=== PATIENT | male | born 1990 | race African-American/Black ===

== ENCOUNTER 2020-05-04 13:50 | Observation (INO) ==
[2020-05-04] MEDS ORDERED: SODIUM CHLORIDE 0.9% 1,000 ML IV STA (14:23)
[2020-05-04] MEDS ORDERED: METOCLOPRAMIDE 10 MG/2 ML VIAL IV STA (14:23)
[2020-05-04] MEDS ORDERED: ONDANSETRON 4 MG/2 ML VIAL IV STA (14:23)
[2020-05-04] MEDS ORDERED: PANTOPRAZOLE 40 MG VIAL IV STA (14:23)
[2020-05-04 14:34] LABS: Basophils % 0.2 % (0.0-0.8); Hematocrit 47.1 VOL% (42.0-52.0); Hemoglobin 16.2 GM/DL (14.0-18.0); Immature Granulocytes % 0.4 %; Immature Granulocytes Absolute 0.05 #; Lymphocytes # 1.1 10*3/uL (1.4-4.0); Lymphocytes % 9.4 % (21.2-54.2); Mean Corpuscular HGB Conc 34.4 GM/DL (32-36); Mean Platelet Volume 11.3 FL (9.6-12.0); Monocytes % 8.2 % (1.7-12.7); Neutrophils % 81.8 % (38.7-73.9); Platelet Count 180 T/CUMM (130-400); Red Blood Count 5.61 MC/CUMM (3.8-5.5); Red Cell Distribution Width 12.3 % (9.3-17.3)
[2020-05-04 14:40] LABS: Bilirubin,Urine Negative (Negative); Blood, Urine Negative (Negative); Glucose,Urine (UA) Negative (Negative); Ketones,Urine 5 mg/dL (Negative); Mucus,Urine Moderate /LPF (Occasional); Nitrite,Urine Negative (Negative); Protein,Urine 30 MG/DL; Squamous Epithelial Cell,Urine Occasional /HPF (0-10); Urine Appearance CLEAR (Clear); Urine Color Yellow (Yellow); Urine Specific Gravity 1.029 (1.001-1.035)
[2020-05-04 14:54] LABS: Albumin 4.2 G/DL (3.4-5.0); Bilirubin,Total 1.8 MG/DL (0.2-1.0); Calcium 9.5 MG/DL (8.5-10.1); Osmolality,Calculated 269.1 MOS/KG (273-304); Total Protein 8.8 G/DL (6.4-8.3)
[2020-05-04] MEDS ORDERED: PIPERACILLIN/TAZOBACTAM 3,375 MG in SODIUM CHLORIDE 0.9% 100 ML IV STA (15:03)
[2020-05-04] MEDS ORDERED: ALBUTEROL/IPRATROPIUM 3 ML NEB RESP TX PRN (15:38)
[2020-05-04] MEDS ORDERED: KETOROLAC 15 MG/1 ML VIAL IV PRN (15:38)
[2020-05-04] MEDS ORDERED: ONDANSETRON 4 MG/2 ML VIAL IV PRN (15:38)
[2020-05-04] MEDS: LACTATED RINGERS 1,000 ML IV SCH (17:12)
[2020-05-05] MEDS: PIPERACILLIN/TAZOBACTAM 3,375 MG in SODIUM CHLORIDE 0.9% 100 ML IV SCH ×3 (01:34→16:50)
[2020-05-05] MEDS: LACTATED RINGERS 1,000 ML IV SCH ×3 (01:34→16:50)
[2020-05-05 05:44] LABS: Basophils % 0.2 % (0.0-0.8); Eosinophils # 0.1 10*3/uL (0.0-0.87); Eosinophils % 0.5 % (0.00-10.9); Hematocrit 42.9 VOL% (42.0-52.0); Hemoglobin 14.8 GM/DL (14.0-18.0); Immature Granulocytes % 1.1 %; Immature Granulocytes Absolute 0.11 #; Lymphocytes # 1.6 10*3/uL (1.4-4.0); Lymphocytes % 16.1 % (21.2-54.2); Mean Corpuscular HGB Conc 34.5 GM/DL (32-36); Mean Corpuscular Volume 84.1 FL (87-102); Monocytes % 8.9 % (1.7-12.7); Neutrophils % 73.2 % (38.7-73.9); Platelet Count 156 T/CUMM (130-400); Red Cell Distribution Width 12.2 % (9.3-17.3); White Blood Count 9.7 T/CUMM (4-12)
[2020-05-05 06:26] LABS: Albumin 3.2 G/DL (3.4-5.0); Bilirubin,Total 3.3 MG/DL (0.2-1.0); Calcium 8.9 MG/DL (8.5-10.1); Osmolality,Calculated 272.7 MOS/KG (273-304); Total Protein 7.2 G/DL (6.4-8.3)
[2020-05-05] MEDS ORDERED: LIDOCAINE 1%/EPI INJ 20 ML VIAL ONE (07:28)
[2020-05-05] MEDS ORDERED: BUPIVACAINE MPF 0.25% 30 ML VIAL ONE (07:28)
[2020-05-05] MEDS ORDERED: MIDAZOLAM 2 MG/2 ML VIAL ONE (07:36)
[2020-05-05] MEDS ORDERED: fentaNYL 100 MCG/2 ML VIAL ONE ×2 (07:36→08:13)
[2020-05-05] MEDS ORDERED: propofoL 200 MG/20 ML VIAL IV ONE (08:25)
[2020-05-05] MEDS ORDERED: ONDANSETRON 4 MG/2 ML VIAL ONE (08:25)
[2020-05-05] MEDS ORDERED: DEXAMETHASONE 4 MG/1 ML VIAL ONE (08:25)
[2020-05-05] MEDS ORDERED: SUCCINYLCHOLINE 200 MG/10 ML VIAL ONE (08:25)
[2020-05-05] MEDS ORDERED: ROCURONIUM 50 MG/5 ML VIAL IV ONE (08:25)
[2020-05-05] MEDS ORDERED: SUGAMMADEX 200 MG/2 ML VIAL IV ONE (08:26)
[2020-05-05] MEDS ORDERED: TISSUE ADHESIVE 1 EACH APPLICATOR TOP ONE (08:28)
[2020-05-05] MEDS ORDERED: MEPERIDINE 25 MG/1 ML VIAL IV PRN (08:55)
[2020-05-05] MEDS ORDERED: diphenhydrAMINE 50 MG/1 ML VIAL IV PRN (08:55)
[2020-05-05] MEDS ORDERED: PROMETHAZINE INJ 25 MG in SODIUM CHLORIDE 0.9% 50 ML IV PRN (08:55)
[2020-05-05] MEDS ORDERED: ONDANSETRON 4 MG/2 ML VIAL IV PRN (08:55)
[2020-05-05] MEDS: HYDROmorphone 2 MG/1 ML VIAL IV PRN ×2 (11:51→20:57)
[2020-05-05] MEDS: PANTOPRAZOLE 40 MG TABLET PO SCH (11:55)
[2020-05-05 15:12] LABS: Bilirubin,Urine Negative (Negative); Blood, Urine Negative (Negative); Glucose,Urine (UA) Negative (Negative); Ketones,Urine Negative (Negative); Mucus,Urine Occasional /LPF (Occasional); Nitrite,Urine Negative (Negative); Protein,Urine Negative; RBC,Urine 2 /HPF (0-4); Squamous Epithelial Cell,Urine Occasional /HPF (0-10); Urine Appearance CLEAR (Clear); Urine Color Yellow (Yellow); Urine Specific Gravity 1.016 (1.001-1.035); WBC,Urine 8 /HPF (0-6)
[2020-05-06] MEDS: LACTATED RINGERS 1,000 ML IV SCH (00:40)
[2020-05-06] MEDS: PIPERACILLIN/TAZOBACTAM 3,375 MG in SODIUM CHLORIDE 0.9% 100 ML IV SCH ×2 (01:00→09:41)
[2020-05-06] MEDS: PANTOPRAZOLE 40 MG TABLET PO SCH (09:40)
[2020-05-06] MEDS: HYDROmorphone 2 MG/1 ML VIAL IV PRN (10:01)
[2020-05-06 11:59] VITALS: BP 138/67
== END 2020-05-06 12:44 | disposition home or self-care (01) ==
LOC: N.EDINP 13:50 → N.ED 13:50 → N.EDINP 17:42 → N.TELES 17:44
PROVIDERS: ADMIT Surgery; ATTEND Surgery